=== PATIENT | male | born 1980 | race Caucasian/White ===

== ENCOUNTER 2017-06-10 14:58 | Emergency (ER) | payer BC ==
[2017-06-10] MEDS ORDERED: SODIUM CHLORIDE 0.9% 1,000 ML IV ONE (15:37)
[2017-06-10] MEDS ORDERED: KETOROLAC 30 MG/ML 1 ML VIAL IVP STA (15:37)
[2017-06-10] MEDS ORDERED: diphenhydrAMINE 50 MG/ML 1 ML VIAL IVP STA (15:37)
[2017-06-10] MEDS ORDERED: METOCLOPRAMIDE 5 MG/ML 2 ML VIAL IVP STA (15:37)
--- NOTE | 2017-06-10 15:40 | ED ---
Headache HPI - General Chief Complaint: Headache Stated Complaint: Headache Mode of arrival: ambulatory Limitations: no limitations - History of Present Illness Initial Comments: Patient is a 36-year-old male who presents for evaluation for migraine-like headache that started this morning. Past medical history as below. Patient has a known history of migraine headaches. He states that it is identical to his previous exacerbations. He did not take any medications at home. He describes it as a throbbing headache that starts at the back of his head which radiates to the left side of his head. He has associated nausea. He denies any head trauma. No confusion per the at bedside. No tearing of the eyes. No slurring speech. No change in gait. No other associated symptoms. He is not followed by neurology. He has a primary care physician. Currently denies fevers, URI symptoms, changes in vision, shortness breath, cough, chest pain, vomiting, diarrhea, pain or burning with urination. - Related Data Home Medications Medication Instructions Recorded Confirmed [id number]-[id number] [id number] 1 - 2 tab PO DAILY PRN 07/07/16 07/07/16 [Excedrin] Allergies Allergy/AdvReac Type Severity Reaction Status Date / Time venom-honey bee Allergy Anaphylaxis Verified 06/10/17 15:06 [bee venom (honey bee)] banana [Banana] AdvReac Constipatio Verified 06/10/17 15:06 n Review of Systems ROS Statement: Those systems with pertinent positive or pertinent negative responses have been documented in the HPI. ROS Other: All systems not noted in ROS Statement are negative. Past Medical History Past Medical History: No Reported History Additional Past Medical History / Comment(s): migraine History of Any Multi-Drug Resistant Organisms: None Reported Past Surgical History: Cholecystectomy, Orthopedic Surgery Past Psychological History: No Psychological Hx Reported Smoking Status: Current every day smoker Past Alcohol Use History: None Reported Past Drug Use History: Marijuana General Exam Limitations: no limitations General appearance: alert, in no apparent distress Head exam: Present: atraumatic, normocephalic, normal inspection Eye exam: Present: normal appearance, PERRL, EOMI. Absent: scleral icterus, conjunctival injection, periorbital swelling ENT exam: Present: normal exam, mucous membranes moist Neck exam: Present: normal inspection. Absent: tenderness, meningismus, lymphadenopathy Respiratory exam: Present: normal lung sounds bilaterally. Absent: respiratory distress, wheezes, rales, rhonchi, stridor Cardiovascular Exam: Present: regular rate, normal rhythm, normal heart sounds. Absent: systolic murmur, diastolic murmur, rubs, gallop, clicks GI/Abdominal exam: Present: soft, normal bowel sounds. Absent: distended, tenderness, guarding, rebound, rigid Extremities exam: Present: normal inspection, full ROM, normal capillary refill. Absent: tenderness, pedal edema, joint swelling, calf tenderness Back exam: Present: normal inspection Neurological exam: Present: alert, oriented X3, CN II-XII intact, other ( Cranial nerves II through XII grossly intact without focal neurological deficits. Alert and oriented 3. Normal gait. Answers questions appropriately. Sensation intact in the upper and lower charities. 5 out of 5 strength of the upper and lower extremity is. L4 and S1 reflexes intact. No ataxia of the upper or lower charities.) Psychiatric exam: Present: normal affect, normal mood Skin exam: Present: warm, dry, intact, normal color. Absent: rash Course Vital Signs 06/10/17 06/10/17 15:03 15:58 Temperature 97.8 F 99 F Pulse Rate 79 72 Respiratory 20 16 Rate Blood Pressure 137/76 140/72 O2 Sat by Pulse 96 98 Oximetry Medical Decision Making - Medical Decision Making 1530: Patient is a 36-year-old male who presents for evaluation for migraine- like headache that is identical to previous exacerbations. Last time he is here for migraine headache he had a negative CT. Since his symptoms are identical to previous exacerbations, will elect to treat his migraine and reevaluate after. Will order 10 mg Reglan, 25 mg Benadryl, 15 mg IV Toradol, IV fluids and reevaluate. 1612: Reevaluated the patient. Significant improvement in his headache. Feels comfortable going home. Requesting a work note. Provided neurology for follow- up. Also recommended that he discussed this with his primary care physician as it may be able to prescribe him abortive medications for his migraines. Discussed specific signs and symptoms on when to return to emergency department for further evaluation. He is comfortable with discharge home and will follow- up with his PCP and/or neurologist. Disposition Clinical Impression: Migraine Disposition: HOME SELF-CARE Condition: Good Instructions: Migraine Headache (ED) Referrals: Jamie Díaz DO [Primary Care Provider] - 1-2 days Cherri Salvador MD [STAFF PHYSICIAN] - 1-2 days
[2017-06-10 15:59] VITALS: BP 140/72; PULSE 72; RESP 16; TEMP 99
== END 2017-06-10 16:34 | disposition home or self-care (01) ==
LOC: EC 14:58
DX: G43.909 Migraine, unspecified, not intractable, without status migrainosus (principal); F17.200 Nicotine dependence, unspecified, uncomplicated; Z91.018 Allergy to other foods; Z91.030 Bee allergy status
CPT/HCPCS: 99282; 96374; 96375 ×2; 96361; J1200; J2765; J1885

== ENCOUNTER → 2018-07-09 | Outpatient (CLI) | payer BC, OTHER ==
--- NOTE | 2018-07-10 12:37 | MR ---
EXAMINATION TYPE: MR brain wo con DATE OF EXAM: 07/09/2018 COMPARISON: CT brain 07/07/2016 HISTORY: Migraine T1-weighted sagittal, T2, FLAIR, and diffusion axial, and T2 coronal coronal views of the brain are s ubmitted. There is no evidence of acute ischemia. The ventricles, basal cisterns, and sulci overlying the conv exities are consistent with the patient's age. There is no mass effect. Craniocervical junction maintained. Sella turcica has a normal appearance. No cerebellopontine angle mass. Changes of mild chronic sinusitis and left mastoiditis noted. White matter: No abnormal signal visualized white matter. IMPRESSION: 1. No acute intracranial process
== END | disposition home or self-care (01) ==
LOC: RADMRIMAIN 11:33
PROVIDERS: ATTEND Psychiatry & Neurology Neurology
DX: G43.009 Migraine without aura, not intractable, without status migrainosus (principal)
CPT/HCPCS: 70551

== ENCOUNTER 2018-08-30 19:56 | Emergency (ER) | payer OTHER ==
[2018-08-30 20:07] VITALS: BP 134/87; PULSE 78; RESP 20; TEMP 98.4
--- NOTE | 2018-08-30 22:07 | XR ---
EXAMINATION TYPE: XR soft tissue neck DATE OF EXAM: 08/30/2018 COMPARISON: NONE HISTORY: Sore throat TECHNIQUE: AP and lateral soft tissue technique FINDINGS: The airway has normal appearance. Soft tissues and skeletal structures are unremarkable. IMPRESSION: Negative examination.
[2018-08-30] MEDS ORDERED: DEXAMETHASONE 4 MG TAB PO STA (22:20)
[2018-08-30] MEDS ORDERED: KETOROLAC 30 MG/ML 1 ML VIAL IVP STA (22:21)
--- NOTE | 2018-08-30 22:44 | ED ---
ENT HPI - General Source: patient Mode of arrival: ambulatory Limitations: no limitations <Rosemarie Riley - Last Filed: 08/31/18 00:35> <Ira Rubi - Last Filed: 08/31/18 04:10> - General Chief complaint: ENT Stated complaint: Throat pain, feels like something stabbing Time Seen by Provider: 08/30/18 20:11 - History of Present Illness Initial comments: 38-year-old male no past medical history, current smoker presenting today for chief complaint of sore throat. Patient states that Wednesday he began to notice a troponin throat, last night a sore throat began he states that increased with swallowing. Patient denies any congestion, bodyaches, fever, chills, night sweats, patient does admit to hoarseness. Patient denies any tripoding, drooling, difficulty breathing, difficulty swallowing, feeling as though throat was closing, or throat swelling. Patient denies any ALLERGIES. Patient denies any recent weight loss or history of cancer. Patient denies any hematemesis, hemoptysis. Upon arrival patient is afebrile, he appears well in no acute distress. Remainder of ROS negative, patient denies any recent f\shortness of breath, chest pain, back pain, abdominal pain, nausea or vomiting, numbness or tingling, dysuria or hematuria, constipation or diarrhea, headaches or visual changes, or any other complaints. Patient presents for evaluation of sore throat. Upon arrival patient appears nontoxic, vital signs within acceptable limits patient afebrile. Patient denies taking any medication today or prior to arrival. (Rosemarie Riley) - Related Data Previous Rx's Medication Instructions Recorded Oseltamivir [Tamiflu] 75 mg PO Q12HR #10 cap 02/16/18 Ibuprofen 800 mg PO Q8H PRN 7 Days #21 tablet 08/30/18 Allergies Allergy/AdvReac Type Severity Reaction Status Date / Time venom-honey bee Allergy Anaphylaxis Verified 08/30/18 20:07 [bee venom (honey bee)] banana [Banana] AdvReac Constipatio Verified 08/30/18 20:07 n Review of Systems ROS Other: All systems not noted in ROS Statement are negative. Constitutional: Denies: fever, chills, night sweats Eyes: Denies: eye pain ENT: Reports: throat pain. Denies: ear pain, dental pain, hearing loss, epistaxis Respiratory: Denies: cough, dyspnea, wheezes, hemoptysis, stridor Cardiovascular: Denies: chest pain, palpitations, dyspnea on exertion Endocrine: Denies: fatigue Gastrointestinal: Denies: abdominal pain, nausea, vomiting, diarrhea, constipation Genitourinary: Denies: urgency, dysuria, frequency Musculoskeletal: Denies: back pain Skin: Denies: rash, lesions Neurological: Denies: headache, weakness, numbness, paresthesias, confusion, abnormal gait <Rosemarie Riley L - Last Filed: 08/31/18 00:35> ROS Other: All systems not noted in ROS Statement are negative. <Ira Rubi P - Last Filed: 08/31/18 04:10> ROS Statement: Those systems with pertinent positive or pertinent negative responses have been documented in the HPI. Past Medical History Past Medical History: No Reported History Additional Past Medical History / Comment(s): migraine History of Any Multi-Drug Resistant Organisms: None Reported Past Surgical History: Cholecystectomy, Orthopedic Surgery Additional Past Surgical History / Comment(s): knee Past Psychological History: No Psychological Hx Reported Smoking Status: Current every day smoker Past Alcohol Use History: Rare Past Drug Use History: Marijuana <Rosemarie Riley L - Last Filed: 08/31/18 00:35> General Exam Limitations: no limitations <Rosemarie Riley L - Last Filed: 08/31/18 00:35> <Ira Rubi P - Last Filed: 08/31/18 04:10> - General Exam Comments Initial Comments: General: The patient is awake and alert, in no distress, and does not appear acutely ill. No signs of toxicity or acute distress. Eye: Pupils are equal, round and reactive to light, extra-ocular movements are intact. No nystagmus. There is normal conjunctiva bilaterally. No signs of icterus. Ears, nose, mouth and throat: There are moist mucous membranes and no oral lesions. Oropharynx is mildly erythematous, there is no tonsillar enlargement or exudates. Uvula is midline, no evidence of peritonsillar abscess. There is postnasal drip. Patient voice mildly hoarse, no tripoding or drooling. No signs of respiratory distress. No palpable thyroid nodules. No noted cervical lymphadenopathy. Neck: The neck is supple, there is no tenderness or JVD. Cardiovascular: There is a regular rate and rhythm. No murmur, rub or gallop is appreciated. Respiratory: Lungs are clear to auscultation, respirations are non-labored, breath sounds are equal. No wheezes, stridor, rales, or rhonchi. Musculoskeletal: Normal ROM, no tenderness. Strength 5/5. Sensation intact. Pulses equal bilaterally 2+. Neurological: A&O x 3. CN II-XII intact, There are no obvious motor or sensory deficits. Coordination appears grossly intact. Speech is normal. Skin: Skin is warm and dry and no rashes or lesions are noted. Psychiatric: Cooperative, appropriate mood & affect, normal judgment. (Rosemarie Riely) Vital Signs 08/30/18 20:05 Temperature 98.4 F Pulse Rate 78 Respiratory 20 Rate Blood Pressure 134/87 O2 Sat by Pulse 98 Oximetry Medical Decision Making <Rosemarie Riley - Last Filed: 08/31/18 00:35> <Ira Rubi - Last Filed: 08/31/18 04:10> - Medical Decision Making Patient appears well, there are no signs of distress. Exam is as noted above. Patient denies any compressive symptoms. X-ray obtained of the soft tissues, lateral view. There is no noted epiglottitis-steeple or thumb sign. Patient's voice and symptoms consistent with possible viral laryngitis/pharyngitis, rapid strep and influenza testing negative. Case discussed in detail with Dr. Rubi. At this time feel patient is stable for discharge with return for any difficulty swallowing, difficulty breathing, worsening of symptoms, fever or chills. Patient is agreeable plan. Patient was given Toradol and dexamethasone. In addition patient is getting outside prescription for ibuprofen 800 for pain management. Patient is agreeable discharge, patient was instructed to follow-up in 1-2 days with primary provider he verbalized understanding importance of follow-up. Return parameters discussed at length, patient appears compliant. Patient was discharged in stable condition vital signs within acceptable limits. (Rosemarie Riley) I was available for consultation in the emergency department. The history and physical exam were done by the midlevel provider. I was consulted for this patient's care. I reviewed the case with the midlevel provider and based on their presentation of the patient, I agree with the assessment, medical decision making and plan of care as documented. (Ira Rubi) - Lab Data Lab Results 08/30/18 08/30/18 Range/Units 20:40 20:40 Influenza Type A RNA Not Detected (Not Detectd) Influenza Type B (PCR) Not Detected (Not Detectd) Group A Strep Rapid Negative (Negative) Disposition Is patient prescribed a controlled substance at d/c from ED?: No Time of Disposition: 22:43 <Rosemarie Riley - Last Filed: 08/31/18 00:35> <Ira Rubi - Last Filed: 08/31/18 04:10> Clinical Impression: Viral URI, Pharyngitis Disposition: HOME SELF-CARE Condition: Good Instructions: Pharyngitis (ED), Upper Respiratory Infection (ED), Viral Syndrome (ED) Additional Instructions: Please use medication as discussed. Please follow-up with family doctor in the next 2 days. Please return for any worsening or concerning symptoms as discussed including throat tightness, difficulty breathing, swallowing, wheezing , fever. Prescriptions: Ibuprofen 800 mg PO Q8H PRN 7 Days #21 tablet PRN Reason: Pain Referrals: [facility] [Primary Care Provider] - 1-2 days
== END 2018-08-30 23:21 | disposition home or self-care (01) ==
LOC: EC 19:56
DX: J06.9 Acute upper respiratory infection, unspecified (principal); J02.9 Acute pharyngitis, unspecified; F17.200 Nicotine dependence, unspecified, uncomplicated; Z91.018 Allergy to other foods; Z91.030 Bee allergy status
CPT/HCPCS: 87081; 87430; 87502; 70360; 99283; 96374; J8540; J1885